=== PATIENT | female | born 1965 | race Caucasian/White ===

== ENCOUNTER → 2021-08-10 | Outpatient (CLI) | payer OTHER ==
--- NOTE | 2021-08-10 10:01 | RAD ---
Site ID: [id number] EXAMINATION: XR KNEE 3 VIEWS_RT. HISTORY: 56 years Female Reason: KNEE PAIN, KNEE GAVE OUT WHEN STEPPING OFF LADDER / Spl. Instructi ons: CAN NOT LIFT LEG / History: . COMPARISON: None. FINDINGS: No fracture, dislocation or radiopaque foreign body. There is a prominent suprapatellar effusion. The minimal marginal osteophytes seen in the medial compartment. IMPRESSION: Prominent joint effusion. No fractures. Electronically signed by: Quintin Craven MD (08/10/2021 9:58 AM) [id number]
== END ==
LOC: RAD 09:42
PROVIDERS: ATTEND Physician Assistant
DX: M25.461 Effusion, right knee (principal); M25.761 Osteophyte, right knee
CPT/HCPCS: 73562

== ENCOUNTER 2021-10-27 17:22 | Emergency (ER) | payer OTHER ==
[~2021-10-27] VITALS: Ht 165.1 cm; Wt 90.9 kg
--- NOTE | 2021-10-27 17:35 | PHYS DOC ---
General Adult HPI: HPI: ".. I had surgery on my ACL.. of Oct 04.. by Dr Dalton at [facility].. .. I noticed a areas of edema and pain in behind my Rt. knee.. they told me to go to ED and get a US....make sure I did not have a blood clot.." Patient is a 56 year old female who presents with above hx and complaints of pain behnid Rt. Knee Pt. had ACL Surgery on Oct.04. By Dr. Dalton. Distal neurovascular is equal to the left leg. Suture lines are well-healed. Can do straight leg lift. Ligaments appear relatively stable. No signs of infection or cellulitis. There is a small area of tenderness and edema behind the right popliteal. Review of Systems: Review of Systems: Constitutional: Denies fever or chills Eyes: Denies change in visual acuity HENT: Denies nasal congestion or sore throat Respiratory: Denies cough or shortness of breath Cardiovascular: Denies chest pain or edema GI: Denies abdominal pain, nausea, vomiting, bloody stools or diarrhea : Denies dysuria Musculoskeletal: Surgical scars on both knees. Pain behind right knee. Integument: Denies rash Neurologic: Denies headache, focal weakness or sensory changes Endocrine: Denies polyuria or polydipsia Lymphatic: Denies swollen glands Psychiatric: Denies depression or anxiety Family History: Family History: Noncontributory to presentation Current Medications: Current Meds: See nursing for home meds Allergies: Allergies: No known drug allergies Physical Exam: PE: Constitutional: Well developed, well nourished, no acute distress, non-toxic appearance. [] HENT: Normocephalic, atraumatic, bilateral external ears normal, oropharynx moist, no oral exudates, nose normal. [] Eyes: PERRLA, EOMI, conjunctiva normal, no discharge. [] Neck: Normal range of motion, no tenderness, supple, no stridor. [] Cardiovascular:Heart rate regular rhythm, no murmur [] Lungs & Thorax: Bilateral breath sounds clear to auscultation [] Abdomen: Bowel sounds normal, soft, no tenderness, no masses, no pulsatile masses. [] Skin: Warm, dry, no erythema, no rash. [] Back: No tenderness, no CVA tenderness. [] Extremities: No tenderness, no cyanosis, no clubbing, ROM intact, no edema. [] Neurologic: Alert and oriented X 3, normal motor function, normal sensory function, no focal deficits noted. [] Psychologic: Affect normal, judgement normal, mood normal. [] EKG: EKG: [] Radiology/Procedures: Radiology/Procedures: [][address] [id number] IMAGING REPORT Signed PATIENT: VIVIENNE ZEPEDA ACCOUNT: [id number] : 1965 LOCATION: ER AGE: 56 SEX: F EXAM STATUS: REG ER ORD. PHYSICIAN: CELINA SERNA MD REASON: ACL surgery, leg pain, edema PROCEDURE: VENOUS LOWER EXTREMITY RIGHT Right lower extremity venous Doppler dated 10/27/2021 5:57 PM COMPARISON: none. CLINICAL INDICATION: Leg pain Reason: ACL surgery, leg pain, edema / Spl. Instructions: / History: FINDINGS: Grayscale, color-flow and spectral waveform analysis performed to include the deep venous system of right lower extremity. There is normal compressibility, phasicity and augmentation of flow throughout. No filling defects are seen. IMPRESSION: No evidence of right lower extremity deep vein thrombosis. Electronically signed by: Jose Chicas MD (10/27/2021 5:58 PM) [facility] [place] AND SIGNED BY: JOSE CHICAS MD DATE: 10/27/21 [id number] CC: CELINA SERNA MD; PCP,UNKNOWN ~MTH0 0 Heart Score: C/O Chest Pain: N/A Risk Factors: Risk Factors: DM, Current or recent (<one month) smoker, HTN, HLP, family history of CAD, obesity. Risk Scores: Score 0 - 3: 2.5% MACE over next 6 weeks - Discharge Home Score 4 - 6: 20.3% MACE over next 6 weeks - Admit for Clinical Observation Score 7 - 10: 72.7% MACE over next 6 weeks - Early Invasive Strategies Course & Med Decision Making: Course & Med Decision Making Pertinent Labs and Imaging studies reviewed. (See chart for details) Continue ice packs as needed. Continue with physical therapy. Take Tylenol and ibuprofen as needed for discomfort. Follow-up with Dr. Dalton. Impression: 1. History of right ACL-tear and repair [] Dragon Disclaimer: Dragon Disclaimer: This electronic medical record was generated, in whole or in part, using a voice recognition dictation system. Departure Departure: Referrals: PCP,UNKNOWN (PCP) [place] Disclaimer This chart was dictated in whole or in part using Voice Recognition software in a busy, high-work load, and often noisy Emergency Department environment. It may contain unintended and wholly unrecognized errors or omissions. Dragon Disclaimer This chart was dictated in whole or in part using Voice Recognition software in a busy, high-work load, and often noisy Emergency Department environment. It may contain unintended and wholly unrecognized errors or omissions. CELINA SERNA MD Oct 27, 2021 17:35
--- NOTE | 2021-10-27 18:00 | RAD ---
Right lower extremity venous Doppler dated 10/27/2021 5:57 PM COMPARISON: none. CLINICAL INDICATION: Leg pain Reason: ACL surgery, leg pain, edema / Spl. Instructions: / History: FINDINGS: Grayscale, color-flow and spectral waveform analysis performed to include the deep venous system of r ight lower extremity. There is normal compressibility, phasicity and augmentation of flow throughout. No filling defects are seen. IMPRESSION: No evidence of right lower extremity deep vein thrombosis. Electronically signed by: Jose Chicas MD (10/27/2021 5:58 PM) [facility]
[2021-10-27 18:50] LABS: BASO % 1 % (0-3); EOS # 0.2 x10^3/uL (0.0-0.7); EOS % 3 % (0-3); HEMATOCRIT 38.9 % (36.0-47.0); HEMOGLOBIN 12.5 g/dL (12.0-15.5); LYMPH # 1.8 x10^3/uL (1.0-4.8); LYMPH % 27 % (24-48); MEAN CORPUSCULAR HEMOGLOBIN 28 pg (25-35); MEAN CORPUSCULAR HGB CONC 32 g/dL (31-37); MEAN CORPUSCULAR VOLUME 86 fL (79-100); MONO # 0.4 x10^3/uL (0.0-1.1); MONO % 6 % (0-9); NEUT # 4.3 x10^3uL (1.8-7.7); NEUT % 64 % (31-73); PLATELET COUNT 278 x10^3/uL (140-400); RED BLOOD COUNT 4.51 x10^6/uL (3.50-5.40); RED CELL DISTRIBUTION WIDTH 13.8 % (11.5-14.5); WHITE BLOOD COUNT 6.6 x10^3/uL (4.0-11.0)
[2021-10-27 18:51] LABS: CALCIUM 8.9 mg/dL (8.5-10.1); CREATININE 0.9 mg/dL (0.6-1.0); GFR 64.5; POTASSIUM 3.5 mmol/L (3.5-5.1)
[2021-10-27 19:20] VITALS: BP 142/76
== END 2021-10-27 19:24 | disposition home or self-care (01) ==
LOC: ER 17:22
DX: G89.18 Other acute postprocedural pain (principal); M25.561 Pain in right knee; R60.0 Localized edema
CPT/HCPCS: 36415; 80048; 85025; 85379; 85610; 85730; 93971; 99284